=== PATIENT | female | born 1975 | race Caucasian/White ===

== ENCOUNTER 2024-09-24 13:41 | Emergency (ER) | payer BC, SELFPAY ==
[2024-09-24 13:41] VITALS: BMI 50.3
[2024-09-24 14:15] VITALS: BP 178/96; PULSE 100; RESP 18; TEMP 37.3; O2SAT 98
--- NOTE | 2024-09-24 14:34 | XR_ITS ---
Examination: PA chest single view TECHNIQUE: Upright PA chest single view Exam date and time: September 24, 2024 1451 hours INDICATIONS: Chest and abdomen pain today FINDINGS: Normal heart size Lungs are clear. Osseous structures are intact IMPRESSION: No active disease
--- NOTE | 2024-09-24 14:36 | XR_ITS ---
Examination: CTA chest, with intravenous contrast. CTA abdomen, with intravenous contrast. CTA pelvis, with intravenous contrast. 2-D sagittal and coronal reconstructions. 3-D reconstructions. Date and time of exam: September 24, 2024 1908 hrs. Indications: Chest pain abdominal pain today CTDI vol (mgy) 24.9 DLP (MGycm) 1673 Technique: Multiple CTA images, 2.0 mm slice thickness, obtained chest, abdomen, pelvis, with the high-resolution 64 slice scanner. 100 cc Isovue-370 is administered intravenously. Sagittal and coronal 2-D reconstructions are obtained. 3-D reconstructions, angiographic images are obtained. 3-D postprocessing, including vascular maximum intensity projections. Low dose protocols were performed. One or more of the following dose reduction techniques were used; automated exposure control, adjustment of the mA and/or KV according to patient size, use of iterative reconstruction technique. Findings: No thoracic aortic aneurysm dilatation Pulmonary artery segments are not enlarged No pulmonary artery emboli No paratracheal tracheobronchial or bronchopulmonary adenopathy No pneumonia or pulmonary edema Hepatomegaly 20 cm No liver or splenic lesion Cholelithiasis No pancreatic or adrenal mass 2 mm anterior right renal calculus, no hydronephrosis or ureteral No hydronephrosis or ureteral calculi Normal appendix Colonic diverticulosis, no diverticulitis Anteverted uterus No adnexal mass Urinary bladder intact Osseous structures intact Impression: No thoracic or abdominal aortic aneurysm or dissection Negative for pulmonary artery emboli No pneumonia, pulmonary edema or pleural disease Hepatomegaly 20 cm Cholelithiasis 2 mm anterior nonobstructing right renal calculus, no hydronephrosis or ureteral calculi Normal appendix No bowel obstruction or diverticulitis
--- NOTE | 2024-09-24 14:38 | EDNOTE_ITS ---
ED Abdominal Pain RME/HPI General Chief Complaint: Abdominal Pain Stated complaint: PULSATING PAIN IN MY BELLY [place] BP@HOME 213/91 Time seen by provider: 09/24/24 13:53 Arrival date/time: 09/24/24 13:41 RME / HPI RME / HPI narrative: 48-year-old female patient with significant history of obesity, hypertension, came in for evaluation regarding pulsating abdominal pain. Onset of symptoms about 2 hours prior to ER visit, severity moderate. Patient noticed that her blood pressure was 213/91. 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 Related Data Allergies Allergy/AdvReac Type Severity Reaction Status Date / Time No Known Allergies Allergy Unknown Uncoded 09/24/24 13:44 Review of Systems Review of Systems Narrative Review of Systems: Review of system reviewed and within normal limits except mentioned in HPI ED Exam Narrative Physical exam: VITAL SIGNS: Reviewed. GENERAL APPEARANCE: Alert and interactive, follows commands, no acute distress, HEAD AND FACE: Non-traumatic. ENT: PERRL, pink conjunctivitis, eyelid no trauma, Mucous membrane moist. NECK: Supple, nontender, no nuchal rigidity. CHEST: No tenderness, no crepitus, no paradoxical movement, no retractions. LUNGS: Clear, well ventilated, symmetric, no rales, no wheezing, no ronchi, no stridor, good breath sounds bilaterally. HEART: Regular rate, regular rhythm, no murmur, no gallops. ABDOMEN: Soft, positive bowel sounds, nondistended, no guarding, nontender, no rebound, no masses, RECTAL: Deferred. GENITAL: Deferred. NEUROLOGICAL: Gross motor function intact sensory function intact, Appropriate for age. MUSCULOSKELETAL: low back nontender, full range of motion. EXTREMITIES: Nontender, full range of motion. SKIN: Color pink, dry, no rash, no lacerations, no abrasions, no contusions. LYMPHATICS: Deferred. Course Quality Measures none Orders Category Date Time Status CT Screening NOW Care 09/24/24 14:[address] angio chest abdomen pelvis Stat Exams 09/24/24 14:36 Completed XR chest 1V Stat Exams 09/24/24 14:34 Completed CBC Stat Lab 09/24/24 15:08 Completed Comprehensive Metabolic Panel Stat Lab 09/24/24 15:08 Completed Partial Thromboplastin Time Stat Lab 09/24/24 15:08 Completed Prothrombin Time with INR Stat Lab 09/24/24 15:08 Completed Troponin I Stat Lab 09/24/24 15:08 Completed Urinalysis, C/S if Indicated Stat Lab 09/24/24 15:56 Completed NIFEdipine [Procardia] Med 09/24/24 19:02 Discontinued 20 mg PO X1 ONE cloNIDine HCL [Catapres] Med 09/24/24 14:34 Discontinued 0.1 mg PO X1 ONE Vital Signs Vital signs: Vital Signs Temperature 99.1 F 09/24/24 14:15 Pulse Rate 100 09/24/24 14:15 Respiratory Rate 18 09/24/24 14:15 Blood Pressure 178/96 H 09/24/24 14:15 Pulse Oximetry (%) 98 09/24/24 14:15 Oxygen Delivery Method Room Air 09/24/24 14:15 Abdominal Pain MDM MDM Narrative MDM Narrative:: 48-year-old female patient with significant history of obesity, hypertension, came in for evaluation regarding pulsating abdominal pain. Onset of symptoms about 2 hours prior to ER visit, severity moderate. Patient noticed that her blood pressure was 213/91. 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 Patient's workup today all came back unremarkable except for CTA scan of the chest, abdomen and pelvis that showed cholelithiasis, no PE, no aneurysm noted Results discussed with the patient and was given a copy also Patient data External records reviewed:: None Clinical information provided by:: patient Social determinants that could affect healthcare access:: none Patient has the following chronic illnesses:: Hypertension How is presenting disease/condition affected by chronic disease/condition?: uneffected by Evaluation data The following diagnostics were reviewed and interpreted by me:: lab results and radiology exam(s) Lab and/or radiology exams considered but not ordered:: None Interpretation Summary: See results MDM Medications / Prescriptions Medications or Prescriptions considered but not ordered:: None Medication administrations:: Medication Administration History Discontinued Medications Clonidine (Clonidine Hcl 0.1 Mg Tablet) 0.1 mg PO X1 ONE Stop: 09/24/24 14:35 Last Admin: 09/24/24 14:41 Dose: 0.1 mg Documented By: OA Nifedipine (Nifedipine 10 Mg Capsule) 20 mg PO X1 ONE Stop: 09/24/24 19:03 Last Admin: 09/24/24 19:12 Dose: 20 mg Documented By: EF Procardia, clonidine Consultations Consultation(s) initiated? (list below): No Diagnosis Differential diagnosis abdominal pain: abdominal pain, constipation and other (Abdominal aortic aneurysm) Most likely diagnosis given after review of the tests above:: Cholelithiasis, abdominal discomfort Admission Indicated Admission indicated?: not indicated Admission Request Was there a request for admission?: No Disposition Plan Disposition Plan: Discharge Discharge Attestation Discharge Attestation: The patient and all family members were given an opportunity to ask questions and understood the discharge instructions. Discharge instructions specifically effects, indications for sooner follow up or return to the emergency department, and the expected course of current diagnosis. Patient condition: Stable Discharge Plan Plan Patient Disposition: HOME (Self Care) Disposition Comment: Stable Prescriptions/Referrals Referrals: No Primary/Family,Physician [Primary Care Provider] - In 1 week Problem List Clinical Impression: Cholelithiasis, Abdominal discomfort Patient/Caregiver Discharge Instructions Discharge Activity: activity as tolerated Education Materials: What Are Gallstones Additional Instructions: Thank you for the opportunity for serving you today. You are stable for discharg ed . You are advised to: Follow-up with your PCP in 1 to 2 days Return to ED for worsening of symptoms Increase oral fluids As your PCP to refer you to a general surgeon regarding your gallstone Today your CT angiogram chest abdomen and pelvis did not show any sign of aneurysm Print Language: [place]an Stand Alone Forms: Ami Award Info., Work/School Release, Patient Portal Info Letter DEN/ENID Supervising Physician DEN/ENID Supervising Physician: MD Becky
[2024-09-24 14:41] VITALS: BP 178/96; PULSE 99
[2024-09-24] MEDS: cloNIDine HCL 0.1 MG TABLET PO (14:41)
[2024-09-24 15:22] LABS: Basophils # (Auto) 0.1 Thou/mm3 (0.0-0.2); Basophils % (Auto) 1 % (0-2.5); Eosinophils # (Auto) 0.1 Thou/mm3 (0.0-0.5); Eosinophils % (Auto) 1 % (0-10); Hematocrit 36.1 % (36.0-46.0); Hemoglobin 11.4 g/dL (12.0-16.0); Immature Granulocytes % (Auto) 0 % (0-0); Immature Granulocytes Auto 0.02 Thou/mm3 (0.00-0.00); Lymphocytes # (Auto) 1.6 Thou/mm3 (1.0-4.8); Lymphocytes % (Auto) 15 % (10-50); Mean Corpuscular HGB Conc 31.6 g/dl (31.0-37.0); Mean Corpuscular Hemoglobin 26.7 pg (25.0-35.0); Mean Corpuscular Volume 85 fL (80-100); Monocytes # (Auto) 0.5 Thou/mm3 (0.0-0.8); Monocytes % (Auto) 5 % (0-12); Neutrophils # (Auto) 8.2 Thou/mm3 (1.8-7.7); Neutrophils % (Auto) 78 % (37-80); Nucleated Red Blood Cell % 0 /100 WBC (0); Platelet Count 374 Thou/mm3 (140-440); RDW Standard Deviation 46.2 fL (36.4-46.3); Red Blood Count 4.27 Miln/mm3 (4.00-5.20); White Blood Count 10.4 Thou/mm3 (3.6-11.0)
[2024-09-24 15:42] LABS: Partial Thromboplastin Time 28.3 Seconds (22.0-36.0); Prothrombin Time 11.2 Seconds (9.0-12.2)
[2024-09-24 15:45] LABS: Alanine Aminotransferase 14 U/L (10-49); Albumin, Serum 4.5 gm/dL (3.5-5.0); Albumin/Globulin Ratio 1.6 (1.2-2.2); Alkaline Phosphatase 101 U/L (46-116); Anion Gap 10 (7-16); Aspartate Amino Transferase 14 U/L (0-34); BUN/Creatinine Ratio 14 Ratio (12-20); Bilirubin,Total 0.2 mg/dL (0.3-1.2); Blood Urea Nitrogen 15 mg/dL (9-23); Calcium 9.9 mg/dL (8.3-10.6); Calcium (Corrected) 9.9 mg/dL (8.5-10.1); Carbon Dioxide 22.6 mMol/L (20.0-31.0); Chloride 109 mMol/L (98-107); Creatinine (Component) 1.1 mg/dL (0.6-1.3); Estimated Creatinine Clearance 80.7 mL/min (>60); Globulin 2.9 gm/dL (2.3-3.5); Glucose 127 mg/dL (74-106); Osmolality,Calculated 285 (275-295); Potassium 3.7 mMol/L (3.4-5.1); Sodium 142 mMol/L (136-145); Total Protein 7.4 gm/dL (5.7-8.2); Troponin I < 0.020 ng/mL (0.0-0.045); eGFR > 60 See Note
[2024-09-24 16:05] LABS: Collection Type, Urine Clean Catch
[2024-09-24 16:22] LABS: Bacteria,Urine Rare; Bilirubin,Urine Negative (Negative); Blood,Urine Negative (Negative); Clarity,Urine Clear (Clear/Hazy); Color,Urine Colorless (Lt Yel-Yel); Culture Indicated,Urine Not Indicated; Glucose, Urine Negative (Negative); Ketones,Urine Negative (Negative); Leukocyte Esterase,Urine Negative (Negative); Nitrite,Urine Negative (Negative); Protein,Urine Negative (Neg - Trace); RBC,Urine 1 /hpf (0-3); Specific Gravity,Urine 1.006 (1.001-1.035); Squamous Epithelial Cell,Urine < 1 /hpf (0-5); Urobilinogen,Urine Negative mg/dL (0.0-1.0); WBC,Urine 1 /hpf (0-5)
[2024-09-24 18:27] VITALS: BP 153/79; BP 219/110; PULSE 79; RESP 18; TEMP 36.7; O2SAT 96
[2024-09-24 19:12] VITALS: BP 197/98; PULSE 79
[2024-09-24] MEDS: NIFEdipine 10 MG CAPSULE 20 MG PO (19:12)
[2024-09-24 20:24] VITALS: BP 133/80; PULSE 90; RESP 17; TEMP 36.7; O2SAT 97
== END 2024-09-24 20:26 | disposition home or self-care (01) ==
PROVIDERS: Nurse Practitioner Family; Emergency Provider Emergency Medicine
DX: K80.20 Calculus of gallbladder without cholecystitis without obstruction (principal); R07.9 Chest pain, unspecified
CPT/HCPCS: 36415; 71045; 71275; 74174; 80053; 81001; 84484; 85025; 85610; 85730; 99285; A4649; Q9967; A9270